=== PATIENT | male | born 1970 | race Caucasian/White ===

== ENCOUNTER 2021-06-03 04:35 | Emergency (ER) | payer OTHER ==
[~2021-06-03] VITALS: Ht 180.3 cm; Wt 74.8 kg
--- NOTE | 2021-06-03 04:48 | NUR ---
BIBA TO ER BED 12
[2021-06-03 05:00] VITALS: BP 104/76
--- NOTE | 2021-06-03 05:05 | NUR ---
BIBA TO BED 12 FOR C/O ABDOMINAL PAIN. "I DID TOO MUCH DRINKING". IS AWAKE AND , ALERT AND COOPERATIVE. POINTS TO MID ABDOMEN WHEN ASKED WHERE PAIN IS.
[2021-06-03] MEDS ORDERED: NACL 0.9% 1,000 ML IV SCH (05:30)
--- NOTE | 2021-06-03 05:30 | NUR ---
DR. KING AT BEDSIDE FOR EXAM
[2021-06-03] MEDS ORDERED: PANTOPRAZOLE 40 MG INJ VIAL IVP ONE (05:50)
[2021-06-03 06:46] LABS: BASOPHILS % (AUTO) 0.1 % (0.0-2.0); HEMATOCRIT 31.3 % (36-52); HEMOGLOBIN 9.7 g/dL (12.0-18.0); LYMPHOCYTES # (AUTO) 1.1 K/uL (2.0-11.5); LYMPHOCYTES % (AUTO) 12.2 % (20.5-51.1); MEAN CORPUSCULAR HEMOGLOBIN 23 pg (27-31); MEAN CORPUSCULAR HGB CONC 31 g/dL (33-37); MEAN CORPUSCULAR VOLUME 72.7 fL (80-94); MONOCYTES # (AUTO) 0.9 K/uL (0.8-1.0); MONOCYTES % (AUTO) 10.1 % (1.7-9.3); NEUTROPHILS # (AUTO) 6.7 K/uL (1.8-7.7); NEUTROPHILS % (AUTO) 77.6 % (42.2-75.2); PLATELET COUNT (AUTO) 249 K/uL (140-450); RED BLOOD CELL COUNT(AUTO) 4.31 MIL/uL (4.20-6.10); RED CELL DISTRIBUTION WIDTH 19.8 % (11.6-13.7); WHITE BLOOD COUNT (AUTO) 8.6 K/uL (4.8-10.8)
[2021-06-03 07:08] LABS: ALBUMIN 3.8 g/dL (3.4-5.0); ANION GAP 10.2 (8-16); CARBON DIOXIDE 34.8 mmol/L (21-32); CREATININE 1.1 mg/dL (0.6-1.3); TOTAL BILIRUBIN 0.7 mg/dL (0.0-1.0)
--- NOTE | 2021-06-03 09:00 | NUR ---
Alisha encarnacion in EDM - 06/03/21 at 0901 by JERROD Patient assessed, treated, and discharged with v/s stable. Written and verbal after care instructions about suture removal given and explained. Patient verbalized understanding. Ambulatory with steady gait. All questions addressed prior to discharge. Advised to follow up with PMD.
--- NOTE | 2021-06-03 09:00 | NUR ---
PT ALERT AND AWAKE, BREATHING EVEN AND UNLABORED
[2021-06-03 09:26] LABS: APPEARANCE,URINE CLEAR (CLEAR); BILIRUBIN,URINE NEGATIVE (NEGATIVE); BLOOD, URINE NEGATIVE (NEGATIVE); COLOR,URINE ORANGE (YELLOW); LEUKOCYTE ESTERASE ,URINE NEGATIVE (NEGATIVE); NITRITE, URINE NEGATIVE (NEGATIVE); PH,URINE 8.5 (5.0-9.0); UGLUCOSE NEGATIVE (NEGATIVE)
[2021-06-03 09:28] LABS: RBC,URINE 0-5 /HPF (0-5); WBC,URINE 0-5 /HPF (0-5)
[2021-06-03 09:31] LABS: BARBITURATE, URINE NEGATIVE ng/ml (NEG <=200); BENZODIAZEPINE, URINE NEGATIVE ng/mL (NEG <=200); CANNABINOID, URINE POSITIVE ng/mL (NEG <=50); COCAINE, URINE NEGATIVE ng/mL (NEG <=300); OPIATE, URINE NEGATIVE ng/mL (NEG <=2000); PHENCYCLIDINE SCREEN,URINE NEGATIVE ng/mL (NEG <=25)
[2021-06-03] MEDS ORDERED: IBUP-2213 PO (10:16)
--- NOTE | 2021-06-03 10:45 | NUR ---
Patient discharged with v/s stable. Written and verbal after care instructions about abdominal pain given and explained. Patient alert, oriented and verbalized understanding of instructions. Ambulatory with steady gait. All questions addressed prior to discharge. ID band removed. Patient advised to follow up with PMD. Rx of ibuprofen given. Patient educated on indication of medication including possible reaction and side effects. Opportunity to ask questions provided and answered.
[2021-06-03 10:51] VITALS: BP 120/79
== END 2021-06-03 10:49 | disposition home or self-care (01) ==
LOC: MED 04:35
DX: R10.30 Lower abdominal pain, unspecified (principal); R11.2 Nausea with vomiting, unspecified; Z86.69 Personal history of other diseases of the nervous system and sense organs
CPT/HCPCS: 36415; 74176; 74177; 80053; 80305; 81001; 83690; 85025; 96361; 96374; 99285; C9113; G0482; J7030; Q9967

== ENCOUNTER 2021-11-13 21:52 | Emergency (ER) | payer OTHER ==
[~2021-11-13] VITALS: Ht 177.8 cm; Wt 70.3 kg
[~2021-11-13 21:52] MED LIST: IBUP-2213 PO
[2021-11-13] MEDS ORDERED: NACL 0.9% 1,000 ML IV ONE (23:00)
[2021-11-13] MEDS ORDERED: ONDANSETRON 4 MG/2 ML VIAL IVP ONE (23:00)
[2021-11-13] MEDS ORDERED: MORPHINE SULFATE 4 MG/ML SYR IVP ONE (23:00)
[2021-11-13 23:20] LABS: BASOPHILS % (AUTO) 0.2 % (0.0-2.0); HEMATOCRIT 39.4 % (36-52); HEMOGLOBIN 13.1 g/dL (12.0-18.0); LYMPHOCYTES # (AUTO) 0.4 K/uL (2.0-11.5); LYMPHOCYTES % (AUTO) 6.6 % (20.5-51.1); MEAN CORPUSCULAR HEMOGLOBIN 28 pg (27-31); MEAN CORPUSCULAR HGB CONC 33 g/dL (33-37); MEAN CORPUSCULAR VOLUME 83.2 fL (80-94); MONOCYTES # (AUTO) 0.5 K/uL (0.8-1.0); NEUTROPHILS # (AUTO) 5.1 K/uL (1.8-7.7); NEUTROPHILS % (AUTO) 85.2 % (42.2-75.2); PLATELET COUNT (AUTO) 229 K/uL (140-450); RED BLOOD CELL COUNT(AUTO) 4.73 MIL/uL (4.20-6.10); RED CELL DISTRIBUTION WIDTH 18.8 % (11.6-13.7)
[2021-11-13 23:23] VITALS: BP 134/78
--- NOTE | 2021-11-13 23:30 | NUR ---
TO CHAIR A FOLLOWING TRIAGE
[2021-11-13 23:41] LABS: ALBUMIN 5.1 g/dL (3.4-5.0); ANION GAP 22.3 (8-16); CARBON DIOXIDE 31.4 mmol/L (21-32); POTASSIUM 3.7 mmol/L (3.5-5.1); TOTAL BILIRUBIN 1.5 mg/dL (0.0-1.0)
[2021-11-14] MEDS ORDERED: ONDANSETRON 4 MG/2 ML VIAL ONE (00:23)
[2021-11-14] MEDS ORDERED: MORPHINE SULFATE 4 MG/ML SYR ONE (00:23)
--- NOTE | 2021-11-14 00:33 | NUR ---
PT TAKEN TO BED 11.
--- NOTE | 2021-11-14 00:35 | NUR ---
51 YO M BIB SELF WITH C/C OF VOMITING X1DAY. PT STATES THERE IS BLOOD IN EMESIS. PT REPORTS HE HAD BEEN DRINKING ALCOHOL HEAVILY FOR 3DAYS STRAIGHT. ABD IS SOFT AND FLAT. BOWEL SOUNDS ACTIVE 4 QUADS. DENIES DIARRHEA. REPORTS 8/10 SHARP ABD PAIN. DENIES HX, RX AND ALLERGIES
[2021-11-14] MEDS ORDERED: ONDA-188 PO (02:41)
[2021-11-14 02:43] VITALS: BP 135/65
== END 2021-11-14 02:43 | disposition home or self-care (01) ==
LOC: MED 21:52
DX: N17.9 Acute kidney failure, unspecified (principal); E86.0 Dehydration; E87.2 Acidosis; Z79.1 Long term (current) use of non-steroidal anti-inflammatories (NSAID)
CPT/HCPCS: 36415; 74176; 80053; 83690; 85025; 96361; 96374; 96375; 99284; J2270; J2405; J7030

== ENCOUNTER 2022-07-25 16:12 | Inpatient (IN) | payer OTHER ==
[~2022-07-25] VITALS: Ht 177.8 cm; Wt 73.5 kg
[~2022-07-25 16:12] MED LIST changes: -IBUP-2213 PO; +LACT10SO11 PO; +ONDA-188 PO; +ONDA2SOL45 PO; +PRO40I PO
[2022-07-25 17:11] VITALS: BP 170/84
--- NOTE | 2022-07-25 17:20 | NUR ---
PT AMB TO BED 10
[2022-07-25] MEDS ORDERED: ONDANSETRON 4 MG/2 ML VIAL IVP ONE (17:25)
[2022-07-25] MEDS ORDERED: PANTOPRAZOLE 40 MG INJ VIAL IVP ONE (17:25)
[2022-07-25] MEDS ORDERED: PANTOPRAZOLE 80 MG in NACL 0.9% 100 ML IVP SCH (17:25)
[2022-07-25] MEDS ORDERED: NACL 0.9% 1,000 ML IV ONE (17:25)
[2022-07-25] MEDS ORDERED: OCTREOTIDE ACETATE 1.25 MG in NACL 0.9% 250 ML IV SCH ×2 (17:40→19:20)
[2022-07-25] MEDS ORDERED: OCTREOTIDE ACETATE 100 MCG/ML VIAL IV SCH (17:40)
--- NOTE | 2022-07-25 17:55 | NUR ---
BOUCHRA SWAB COLLECTED AND HANDED TO STAFFING CONSULTANT
[2022-07-25 18:13] LABS: BASOPHILS % (AUTO) 0.2 % (0.0-2.0); HEMATOCRIT 33.7 % (36-52); HEMOGLOBIN 11.2 g/dL (12.0-18.0); LYMPHOCYTES # (AUTO) 0.6 K/uL (2.0-11.5); LYMPHOCYTES % (AUTO) 7.3 % (20.5-51.1); MEAN CORPUSCULAR HEMOGLOBIN 27 pg (27-31); MEAN CORPUSCULAR HGB CONC 33 g/dL (33-37); MEAN CORPUSCULAR VOLUME 81.2 fL (80-94); MONOCYTES # (AUTO) 0.5 K/uL (0.8-1.0); MONOCYTES % (AUTO) 6.9 % (1.7-9.3); NEUTROPHILS # (AUTO) 6.5 K/uL (1.8-7.7); NEUTROPHILS % (AUTO) 85.6 % (42.2-75.2); PLATELET COUNT (AUTO) 265 K/uL (140-450); RED BLOOD CELL COUNT(AUTO) 4.15 MIL/uL (4.20-6.10); RED CELL DISTRIBUTION WIDTH 17.6 % (11.6-13.7); WHITE BLOOD COUNT (AUTO) 7.6 K/uL (4.8-10.8)
[2022-07-25] MEDS ORDERED: OCTREOTIDE ACETATE 1.25 MG in NACL 0.9% 250 ML IV STA (18:13)
--- NOTE | 2022-07-25 18:21 | NUR ---
52/M PRESENTS TO ED WITH C/O ABDOMINAL PAIN AND COFFEE GROUND EMESIS X3 DAYS. PATIENT ADMITS TO REGULAR CONSUMPTION OF ALCOHOL, STATING HE DRANK "AROUND 6 BEERS YESTERDAY." PATIENT DENIES CP, SOB, FEVERS, CHILLS OR RECENT SICK CONTACTS.
[2022-07-25 18:29] LABS: PROTHROMBIN TIME 10.8 secs (10.8-13.4)
[2022-07-25 18:37] LABS: ALBUMIN 4.3 g/dL (3.4-5.0); ANION GAP 17.2 (8-16); ASPARTATE AMINOTRANSFERASE 28 U/L (15-37); CARBON DIOXIDE 29.6 mmol/L (21-32); CHLORIDE 96 mmol/L (98-107); CREATININE 1.3 mg/dL (0.6-1.3); GFR ARICAN-AMERICAN 74 mL/min (>90); GLUCOSE 123 mg/dL (74-106); POTASSIUM 3.8 mmol/L (3.5-5.1); SODIUM SERUM 139 mmol/L (136-145); TOTAL BILIRUBIN 1.6 mg/dL (0.0-1.0); UREA NITROGEN, BLOOD 11 mg/dL (7-18)
[2022-07-25] MEDS ORDERED: KCL 20 MEQ/WATER INJ PREMIX 200 ML IV PRN (19:20)
[2022-07-25] MEDS ORDERED: POTASSIUM CHLORIDE 10 MEQ TABER PO PRN (19:20)
[2022-07-25] MEDS ORDERED: ACETAMINOPHEN 325 MG TAB PO PRN (19:20)
[2022-07-25] MEDS ORDERED: ONDANSETRON 4 MG/2 ML VIAL IVP PRN (19:20)
[2022-07-25] MEDS ORDERED: MORPHINE SULFATE 4 MG/ML SYR IVP PRN (19:20)
[2022-07-25] MEDS ORDERED: MAGNESIUM OXIDE 400 MG TAB PO PRN (19:20)
[2022-07-25] MEDS ORDERED: HYDROmorphone 1 MG/ML AMP IVP PRN (19:20)
[2022-07-25] MEDS ORDERED: MAG SULF 2000 MG/WATER PREMIX 50 ML IV PRN (19:20)
--- NOTE | 2022-07-25 19:24 | NUR ---
Pt report given to DELFINA MACDONALD, BOOGIE MACDONALD. Transfer of care at this time.
--- NOTE | 2022-07-25 19:59 | NUR ---
ileana from [facility] called regarding protonix drip prescribed by arina conteh. states attending md also placed protonix ivp orders. arina perez stated he will cancel the protonix drip.
[2022-07-25] MEDS ORDERED: cefTRIAXone 1,000 MG VIAL ONE (20:07)
--- NOTE | 2022-07-25 20:12 | NUR ---
pt is awake and alert. pt denies pain and discomfort at this time. all needs met. bed locked in lowest position, side rails x2 for safety.
[2022-07-25] MEDS ORDERED: PANTOPRAZOLE 40 MG INJ VIAL IVP SCH (21:00)
--- NOTE | 2022-07-25 21:46 | NUR ---
report given to otf gregory. [id number]
--- NOTE | 2022-07-25 22:34 | NUR ---
Patient will be admitted to care of [facility]. Admited to TELE]. Will go to [id number]. Belongings list completed. Report to RENAE DAMIAN.
--- NOTE | 2022-07-25 23:00 | NUR ---
RECEIVED REPORT FROM ER NURSE DELFINA MACDONALD ON NEW ADMIT FOR CONTINUITY OF CARE. ARRIVED ON MST UNIT VIA GURNEY. AMBULATED TO BED WITH STEADY GAIT. A&OX4 DENIES PAIN AT THIS TIME. ON RM AIR/O2 WITH NO ACUTE DISTRESS. RR EVEN AND UNLABORED WITH SYMMETRICAL CHEST RISE. GI INTACT. IS NPO EXCEPT MEDS. PT'S SKIN IS INTACT. IV RFA 20G INFUSING LACTATED RINGERS @80CC/HR. ALSO LAC 20G INFUSING SANDOSTATIN @10CC/HR. AT IS AMBULATORY AND CONTINENT. ALL SAFETY MEASURES IN PLACE. BED IN LOW AND LOCKED POSITION . CALL LIGHT WITHIN REACH. PT CAMBODIAN AND BULGARIAN SOPEAKING . ABLE TO MAKE NEEDS KNOWN. WILL CONTINUE TO MONITOR.
[2022-07-25] MEDS: LACTATED RINGERS 1,000 ML IV SCH (23:25)
[2022-07-26] MEDS: HYDROcodone/APAP 5/325 MG 1 TAB TAB PO PRN ×2 (01:14→20:00)
--- NOTE | 2022-07-26 01:15 | NUR ---
VITAL SIGNS STABLE . TEMP- 99.0 C/O 4/10 RLQ PAIN . NOT SLEEPING. NORCO 5/325MG GIVEN WILL CONTINUE FREQ ROUNDS.
--- NOTE | 2022-07-26 02:00 | NUR ---
NORCO EFFECTIVE. PT ASLEEP RR EVEN AND UNLABORED WITH SYMMETRICAL CHEST RISE. NAD. WILL CONTINUE TO OBSERVE.
[2022-07-26 02:06] VITALS: BP 129/76
[2022-07-26 05:32] LABS: BASOPHILS % (AUTO) 0.3 % (0.0-2.0); HEMATOCRIT 30.7 % (36-52); LYMPHOCYTES # (AUTO) 1.2 K/uL (2.0-11.5); LYMPHOCYTES % (AUTO) 18.8 % (20.5-51.1); MEAN CORPUSCULAR HEMOGLOBIN 27 pg (27-31); MEAN CORPUSCULAR HGB CONC 33 g/dL (33-37); MEAN CORPUSCULAR VOLUME 82.3 fL (80-94); MONOCYTES # (AUTO) 0.7 K/uL (0.8-1.0); MONOCYTES % (AUTO) 10.2 % (1.7-9.3); NEUTROPHILS # (AUTO) 4.6 K/uL (1.8-7.7); NEUTROPHILS % (AUTO) 70.7 % (42.2-75.2); PLATELET COUNT (AUTO) 186 K/uL (140-450); RED BLOOD CELL COUNT(AUTO) 3.73 MIL/uL (4.20-6.10); RED CELL DISTRIBUTION WIDTH 17.7 % (11.6-13.7); WHITE BLOOD COUNT (AUTO) 6.5 K/uL (4.8-10.8)
[2022-07-26 06:16] LABS: ALBUMIN 3.5 g/dL (3.4-5.0); ANION GAP 13.1 (8-16); CARBON DIOXIDE 29.2 mmol/L (21-32); CREATININE 0.9 mg/dL (0.6-1.3); MAGNESIUM 1.8 mg/dL (1.8-2.4); PHOSPHORUS 3.5 mg/dL (2.5-4.9); POTASSIUM 3.3 mmol/L (3.5-5.1); TOTAL BILIRUBIN 1.3 mg/dL (0.0-1.0)
--- NOTE | 2022-07-26 07:45 | NUR ---
ENDORSED REPORT TO AM NURSE CHANELLE MACDONALD FOR CONTINUITY OF CARE. PT IS STABLE. ALL NEEDS MET THROUGHOUT THE SHIFT.
--- NOTE | 2022-07-26 07:46 | NUR ---
RECEIVED PT FROM NIGHT RN, PT IS ALERT, AWAKE AND ORIENTED, KOREAN SPEAKING, LYING ON THE BED WITH SAFETY PREACUTION ENFORCED, PT IS ON ROOM AIR, HAS IV LINES NOTED ON THE RIGHT FOREARM G. 20 WITH LACTATED RINGER INFUSING AT 80ML/HR AND ON THE LEFT AC G. 20 WITH SANDOSTATIN INFUSING AT 10ML/HR, INTACT, NO SIGN OF DISTRESS NOTED, PT DENIES PAIN AND WILL CONTINUE TO MONITOR .
[2022-07-26 08:00] VITALS: BP 123/76
[2022-07-26] MEDS: LACTATED RINGERS 1,000 ML IV SCH ×2 (09:13→21:12)
[2022-07-26] MEDS: PANTOPRAZOLE 40 MG INJ VIAL IVP SCH ×2 (09:17→20:01)
--- NOTE | 2022-07-26 09:17 | NUR ---
PT WAS GIVEN THE SCHEDULED IVP MEDICATION NOW.
--- NOTE | 2022-07-26 10:45 | NUR ---
PATIENT HAS BEEN SCREENED AND CATEGORIZED HIGH NUTRITION RISK. PATIENT WILL BE SEEN WITHIN 1-2 DAYS OF ADMISSION. 07/26/22-07/28/22 REVIEWED BY LEIGH HAMEED RD REFERRAL RECEIVED FOR VOMITING >3 DAYS.
--- NOTE | 2022-07-26 11:01 | NUR ---
PT WAS GIVEN POTASSIUM SUPPLEMENT 40MEQ FOR POTASSIUM LEVEL OF 3.3
[2022-07-26 12:00] VITALS: BP 128/89
--- NOTE | 2022-07-26 13:45 | NUR ---
DC PLANNING SW MET WITH PT AT BEDSIDE TO COMPLETE ASSESSMENT. PATIENT IS PRIMARILY [place]ER SPEAKING,THEREFORE, AN RAINBOW TROUT FARM MANAGER WAS USED. RAINBOW TROUT FARM MANAGER INFORMATION LISTED ABOVE. PT REPORTS RESIDING AT HOME WITH HIS FAMILY, IN A GROUND FLOOR APT, AT THE ADDRESS LISTED ON FILE. PATIENT IDENTIFIED TOPHER NUNEZ (SPOUSE) [phone] AND SELVIN NUNEZ (DAUGHTER) [phone] EMERGENCY CONTACT AND MDM. PATIENT REPORTS BEING INCONSISTENT WITH MEETING WITH PCP NEEDED, LAST VISIT; 2 WEEKS AGO. SW SPOKE WITH PATIENT ABOUT THE IMPORTANCE OF F/U CARE. PATIENT RECEPTIVE AND PROVIDED SW WITH PERMISSION TO SCHEDULE FOLLOW UP. PATIENT DENIES TAKING MEDICATION AT THIS TIME HOWEVER, DENIES BARRIERS IN ACCESS TO MEDICATION . IF NEEDED. PATIENT REPORTS PICKING UP MEDICATION FROM [facility], WHEN NEEDED. PATIENT REPORTS BEING AMBULATORY AND DENIES USE OF DME. PATIENT COMPLETES ALL ADL'S INDEPENDENTLY. PT DENIES MENTAL HEALTH HX. PATIENT REPORTS CHRONIC ALCOHOL USE. PATIENT REPORTS DRINKING 5-6 24OZ CANS /DAILY. PATIENT REPORTS USE SPANNING OVER 40 YRS. PATIENT REPORTS ONLY BEING SOBER WHEN FEELING ILL. PATIENT ACCEPTED SUBSTANCE USE RESOURCES OFFERED BY MARTHA. PATIENT REPORTS DC PLAN IS TO RETURN HOME WHEN MEDICALLY CLEARED. SW INQUIRED ON ADDITIONAL RESOURCES NEEDED, PATIENT DECLINED. Addendum: 07/26/22 at 1539 by Sola Daugherty PROVIDED PT WITH SUBSTANCE USE RESOURCES, PATIENT ACCEPTED
--- NOTE | 2022-07-26 14:37 | NUR ---
INFORMED DR. GRANT OF THE CONSULT FOR PT, MADE A TELEPHONE ORDER TO OBTAIN CONSENT FOR EGD TOMORROW AND TO START PT ON CLEAR LIQUID DIET AND NPO AFTER MIDNIGHT.
[2022-07-26 16:00] VITALS: BP 120/72
--- NOTE | 2022-07-26 19:02 | NUR ---
07/26/2022 RD INITIAL ASSESSMENT COMPLETED. PLEASE REFER TO NUTRITION ASSESSMENT UNDER CARE ACTIVITY FOR ESTIMATED NUTRITIONAL NEEDS. 1.CONTINUE WITH CLEAR LIQUID DIET. WHEN/IF MEDICALLY APPROPRIATE, ADVANCE TO FULL LIQUID DIET PT TOLERATES, 2.MONITOR PO INTAKE & GI SYMPTOMS 3.RD TO FOLLOW-UP IN 3-5 DAYS PATIENT IS MODERATE RISK. LEIGH HAMEED RD
--- NOTE | 2022-07-26 19:18 | NUR ---
ENDORSED PT TO NIGHT RN FOR CONTINUITY OF CARE, PT IS STABLE AT THIS TIME.
[2022-07-26 20:00] VITALS: BP 129/75
[2022-07-26 23:46] VITALS: BP 116/77
[2022-07-27 03:42] VITALS: BP 136/92
[2022-07-27 06:54] LABS: BASOPHILS % (AUTO) 0.6 % (0.0-2.0); EOSINOPHILS % (AUTO) 0.6 % (0.0-4.0); HEMATOCRIT 30.8 % (36-52); HEMOGLOBIN 10.1 g/dL (12.0-18.0); LYMPHOCYTES # (AUTO) 1.1 K/uL (2.0-11.5); LYMPHOCYTES % (AUTO) 30.2 % (20.5-51.1); MEAN CORPUSCULAR HEMOGLOBIN 27 pg (27-31); MEAN CORPUSCULAR HGB CONC 33 g/dL (33-37); MEAN CORPUSCULAR VOLUME 81.7 fL (80-94); MONOCYTES # (AUTO) 0.3 K/uL (0.8-1.0); MONOCYTES % (AUTO) 9.3 % (1.7-9.3); NEUTROPHILS # (AUTO) 2.1 K/uL (1.8-7.7); NEUTROPHILS % (AUTO) 59.3 % (42.2-75.2); PLATELET COUNT (AUTO) 191 K/uL (140-450); RED BLOOD CELL COUNT(AUTO) 3.76 MIL/uL (4.20-6.10); RED CELL DISTRIBUTION WIDTH 17.2 % (11.6-13.7); WHITE BLOOD COUNT (AUTO) 3.6 K/uL (4.8-10.8)
[2022-07-27 07:18] LABS: ALBUMIN 3.3 g/dL (3.4-5.0); ANION GAP 12.5 (8-16); CREATININE 0.7 mg/dL (0.6-1.3); MAGNESIUM 1.4 mg/dL (1.8-2.4); PHOSPHORUS 2.5 mg/dL (2.5-4.9); POTASSIUM 3.5 mmol/L (3.5-5.1); TOTAL BILIRUBIN 0.8 mg/dL (0.0-1.0)
--- NOTE | 2022-07-27 07:30 | NUR ---
RECEIVED PT FROM NIGHTSHIFT NURSE. PT A/O X3. VIETNAMESE SPEAKING. NO SOB OR RESPIRATORY DISTRESS. ON RA. DENIES PAIN AT THIS TIME. NPO. IV RFA #20 AND LFA#20 DRESSING C/D/I. LR @ 80ML/HR. NEEDS ALL MET AT THIS TIME. ALL SAFETY MEASURES IN PLACE.
[2022-07-27 08:00] VITALS: BP 125/70
[2022-07-27] MEDS: LACTATED RINGERS 1,000 ML IV SCH ×2 (08:38→20:16)
--- NOTE | 2022-07-27 08:38 | NUR ---
PT OFF UNIT TO EGD
[2022-07-27] MEDS: PANTOPRAZOLE 40 MG INJ VIAL IVP SCH ×2 (08:39→20:10)
[2022-07-27] MEDS ORDERED: fentaNYL citrate 0.05 MG/ML VIAL ONE (08:50)
[2022-07-27] MEDS ORDERED: diphenhydrAMINE 50 MG/ML VIAL ONE (08:50)
[2022-07-27] MEDS ORDERED: MIDAZOLAM 2 MG/2 ML VIAL ONE (08:50)
[2022-07-27] MEDS ORDERED: fentaNYL citrate 0.05 MG/ML VIAL IVP ONE (10:00)
[2022-07-27] MEDS ORDERED: MIDAZOLAM 2 MG/2 ML VIAL IVP ONE (10:00)
--- NOTE | 2022-07-27 10:00 | NUR ---
PT BACK FROM EGD. PT AWAKE AND ALERT. IN NO ACUTE DISTRESS. RR EVEN & UNLABORED. ALL SAFETY MEASURES IN PLACE.
--- NOTE | 2022-07-27 11:00 | NUR ---
SPOKE WITH DR. ASH AND STATES PLANS FOR COLONOSCOPY TOMORROW AT 1400. ORDER FOR PT TO BE NPO AFTER MIDNIGHT.
[2022-07-27 12:00] VITALS: BP 136/84
--- NOTE | 2022-07-27 13:45 | NUR ---
PT PULLED OUT L FA #20. NEW IV RESTART ON R FA #22 X 1 ATTEMPT WITH POSITIVE BLOOD RETURN, FLUSHED WITH 5 ML NS, TEGADERM APPLIED. PT TOLERATED WELL.
[2022-07-27] MEDS: LANSOPRAZOLE 30 MG CAPDR PO SCH (15:54)
[2022-07-27 16:00] VITALS: BP 117/77
[2022-07-27] MEDS: SUPREP BOWEL PREP KIT 354 ML SOLN.RECON PO SCH (18:24)
--- NOTE | 2022-07-27 19:23 | NUR ---
REPORT GIVEN TO NIGHTSHIFT NURSECEE FOR CONTINUITY OF CARE.
--- NOTE | 2022-07-27 19:25 | NUR ---
RECEIVED PATIENT IN BED, AWAKE, ALERT AND ORIENTED. DENIES PAIN AT THIS TIME. NO ACUTE RESPIRATORY DISTRESS NOTED. SKIN WARM AND DRY TO TOUCH. BED IN THE LOWEST AND LOCKED POSITION FOR SAFETY, CALL LIGHT IN REACH.
[2022-07-27 20:00] VITALS: BP 129/83
[2022-07-27] MEDS ORDERED: SUPREP BOWEL PREP KIT 354 ML SOLN.RECON PO SCH (21:00)
[2022-07-27] MEDS: LORazepam 1 MG TAB PO PRN (21:20)
--- NOTE | 2022-07-27 21:30 | NUR ---
ENEMA GIVEN ORDERED, PATIENT TOLERATED WELL.
[2022-07-27] MEDS ORDERED: SODIUM PHOSPHATE 118 ML ENEM RC SCH (22:00)
--- NOTE | 2022-07-27 23:11 | NUR ---
PATIENT HAD A LARGE BROWN/REDDISH WATERY STOOL.
[2022-07-28] VITALS: BP 119/76
[2022-07-28] MEDS: SUPREP BOWEL PREP KIT 354 ML SOLN.RECON PO SCH (01:24)
--- NOTE | 2022-07-28 01:45 | NUR ---
PATIENT HAD A LARGE WATERY STOOL. ABLE TO FINISH PREP FOR COLONOSCOPY.
[2022-07-28 04:00] VITALS: BP 116/76
--- NOTE | 2022-07-28 04:00 | NUR ---
PATIENT IS ASLEEP. NO S/SX OF PAIN NOR DISCOMFORT. CALL LIGHT WITHIN REACH.
--- NOTE | 2022-07-28 06:21 | NUR ---
PATIENT IS ASLEEP. ALL NEEDS ATTENDED TO. NO DISTRESS NOTED. CURRENTLY NPO. SAFETY PRECAUTIONS MIANTAINED DURING THE SHIFT. CALL LIGHT REMAINED WITHIN REACH.
[2022-07-28] MEDS: LANSOPRAZOLE 30 MG CAPDR PO SCH ×2 (06:30→16:06)
[2022-07-28] MEDS ORDERED: diphenhydrAMINE 50 MG/ML VIAL ONE (06:59)
[2022-07-28] MEDS ORDERED: MIDAZOLAM 5 MG/5 ML VIAL ONE (06:59)
[2022-07-28] MEDS ORDERED: fentaNYL citrate 0.05 MG/ML VIAL ONE (06:59)
[2022-07-28 07:05] LABS: ALBUMIN 3.6 g/dL (3.4-5.0); ANION GAP 17.2 (8-16); CARBON DIOXIDE 23.3 mmol/L (21-32); CREATININE 0.8 mg/dL (0.6-1.3); MAGNESIUM 1.5 mg/dL (1.8-2.4); PHOSPHORUS 2.8 mg/dL (2.5-4.9); POTASSIUM 3.5 mmol/L (3.5-5.1); TOTAL BILIRUBIN 0.8 mg/dL (0.0-1.0)
[2022-07-28 07:17] LABS: BASOPHILS % (AUTO) 0.4 % (0.0-2.0); EOSINOPHILS % (AUTO) 0.3 % (0.0-4.0); HEMATOCRIT 32.7 % (36-52); HEMOGLOBIN 10.7 g/dL (12.0-18.0); LYMPHOCYTES # (AUTO) 0.9 K/uL (2.0-11.5); LYMPHOCYTES % (AUTO) 22.3 % (20.5-51.1); MEAN CORPUSCULAR HEMOGLOBIN 27 pg (27-31); MEAN CORPUSCULAR HGB CONC 33 g/dL (33-37); MONOCYTES # (AUTO) 0.5 K/uL (0.8-1.0); MONOCYTES % (AUTO) 10.7 % (1.7-9.3); NEUTROPHILS # (AUTO) 2.8 K/uL (1.8-7.7); NEUTROPHILS % (AUTO) 66.3 % (42.2-75.2); PLATELET COUNT (AUTO) 205 K/uL (140-450); RED BLOOD CELL COUNT(AUTO) 3.99 MIL/uL (4.20-6.10); RED CELL DISTRIBUTION WIDTH 17.3 % (11.6-13.7); WHITE BLOOD COUNT (AUTO) 4.2 K/uL (4.8-10.8)
[2022-07-28] MEDS: MIDAZOLAM 5 MG/5 ML VIAL IV ONE ×2 (07:19→07:58)
[2022-07-28] MEDS: fentaNYL citrate 0.05 MG/ML VIAL IVP ONE ×2 (07:20→07:58)
--- NOTE | 2022-07-28 07:30 | NUR ---
RECEIVED REPORT FROM NIGHTSHIFT NURSECEE. PT NOT ON UNIT. OFF FOR COLONOSCOPY.
--- NOTE | 2022-07-28 07:45 | NUR ---
PT BACK FROM COLONOSCOPY. PT A/O X3. CZECH SPEAKING, LITTLE [place]. HOB ELEVATED. NO SOB OR RESPIRATORY DISTRESS. ON RA. RR EVEN & UNLABORED. DENIES PAIN AT THIS TIME. URINAL AT BEDSIDE. LR @ 80 ML/HR. NEEDS ALL MET AT THIS TIME. ALL SAFETY MEASURES IN PLACE.
[2022-07-28 08:00] VITALS: BP 98/72
[2022-07-28] MEDS: PANTOPRAZOLE 40 MG INJ VIAL IVP SCH ×2 (09:01→20:55)
[2022-07-28] MEDS: LACTATED RINGERS 1,000 ML IV SCH ×2 (09:12→22:48)
--- NOTE | 2022-07-28 11:00 | NUR ---
PT SPEAKING IN [place]. PREOP NURSE EXPLAINED IN [place] THAT PT HAD A COLONOSCOPY AND THAT MD STATES NO INTERVENTIONS WILL BE DONE FOR HIS HEMORRHOIDS DUE TO HIS HIATAL HERNIA. PT UPSET. EXPLAINED WILL CONTACT MD REGARDING PT'S CONCERN REGARDING HIS HEMORRHOIDS. ALL NEEDS MET. ALL SAFETY MEASURES IN PLACE.
[2022-07-28 12:00] VITALS: BP 121/89
--- NOTE | 2022-07-28 13:00 | NUR ---
MD WILL SPEAK WITH PT. EXPLAINED TO PT AND PT VERBALIZED UNDERSTANDING.
[2022-07-28 16:00] VITALS: BP 123/74
--- NOTE | 2022-07-28 19:21 | NUR ---
REPORT GIVEN TO NIGHTSKYFT NURSE JAMES FOR CONTINUITY OF CARE.
--- NOTE | 2022-07-28 19:30 | NUR ---
RECEIVED BEDSIDE REPORT FROM DAY SHIFT RN FOR CONTINUITY OF CARE. PT IS AWAKE. AAOX4 DOMINICAN SPEAKER. PT IS ON RA. PT USES URINAL. PT HAS RIGHT FOREARM 20 GAUGE, 20 GAUGE ON LEFT FOREARM 22 GAUGE RUNNING LR AT 80 CC/HR. PLAN OF CARE DISCUSSED. WILL CONTINUE TO MONITOR THE PT.
[2022-07-28 20:00] VITALS: BP 121/77
--- NOTE | 2022-07-28 20:58 | NUR ---
SCHEDULE MEDICATIONS GIVEN. NO ADVERSE REACTION NOTED. WILL CONTINUE TO MONITOR THE PT.
--- NOTE | 2022-07-28 23:30 | NUR ---
PT FAMILY CALLED AND WANTED TO SPEAK WITH THE PT. ASSISTED PT WITH PHONE IN THE ROOM. PT WAS ABLE TO SPEAK WITH THE FAMILY.
[2022-07-29] VITALS: BP 129/85
--- NOTE | 2022-07-29 01:35 | NUR ---
PT WAS SLEEPING COMFORTABLY IN BED. PT NOT IN ANY ACUTE DISTRESS. VISIBLE RISE AND CHEST FALL. IVF RUNNING PER MD ORDER. WILL CONTINUE TO MONITOR THE PT.
[2022-07-29] MEDS: LORazepam 1 MG TAB PO PRN (03:44)
--- NOTE | 2022-07-29 03:55 | NUR ---
PT FELT ANXIOUS. ATIVAN GIVEN PER MD ORDER. NO OTHER COMPLAINS. WILL CONTINUE TO MONITOR THE PT.
[2022-07-29 04:24] VITALS: BP 116/83
[2022-07-29 06:13] LABS: BASOPHILS % (AUTO) 0.5 % (0.0-2.0); EOSINOPHILS % (AUTO) 0.3 % (0.0-4.0); HEMATOCRIT 33.5 % (36-52); HEMOGLOBIN 10.8 g/dL (12.0-18.0); LYMPHOCYTES # (AUTO) 0.9 K/uL (2.0-11.5); LYMPHOCYTES % (AUTO) 22.3 % (20.5-51.1); MEAN CORPUSCULAR HEMOGLOBIN 27 pg (27-31); MEAN CORPUSCULAR HGB CONC 32 g/dL (33-37); MEAN CORPUSCULAR VOLUME 82.3 fL (80-94); MONOCYTES # (AUTO) 0.4 K/uL (0.8-1.0); MONOCYTES % (AUTO) 11.6 % (1.7-9.3); NEUTROPHILS # (AUTO) 2.5 K/uL (1.8-7.7); NEUTROPHILS % (AUTO) 65.3 % (42.2-75.2); PLATELET COUNT (AUTO) 206 K/uL (140-450); RED BLOOD CELL COUNT(AUTO) 4.07 MIL/uL (4.20-6.10); RED CELL DISTRIBUTION WIDTH 17.6 % (11.6-13.7); WHITE BLOOD COUNT (AUTO) 3.8 K/uL (4.8-10.8)
[2022-07-29 06:22] LABS: ALBUMIN 3.5 g/dL (3.4-5.0); ANION GAP 13.8 (8-16); CARBON DIOXIDE 23.8 mmol/L (21-32); CREATININE 0.8 mg/dL (0.6-1.3); MAGNESIUM 1.6 mg/dL (1.8-2.4); PHOSPHORUS 3.9 mg/dL (2.5-4.9); POTASSIUM 3.6 mmol/L (3.5-5.1); TOTAL BILIRUBIN 0.6 mg/dL (0.0-1.0)
[2022-07-29] MEDS: LANSOPRAZOLE 30 MG CAPDR PO SCH (06:34)
[2022-07-29] MEDS ORDERED: PANT40EC PO (07:05)
--- NOTE | 2022-07-29 07:15 | NUR ---
ENDORSED PT TO DAY SHIFT RN FOR CONTINUITY OF CARE. PT IS STABLE.
--- NOTE | 2022-07-29 07:16 | NUR ---
RECEIVED REPORT FROM COTTON GIN YARD SUPERVISOR NURSE JAMES FOR CONTINUITY OF CARE. PT SLEEPING, ASILY AROUSABLE BY VERBAL STIMULI. RESPIRATIONS EVEN AND UNLABORED ON RA. ON BOILERS INSPECTOR. A&O4, ABLE TO COMMUNICATE NEEDS. IV SITE ON RFA 20G, SL AND LFA 22G, INFUSING LR AT 80ML/HR. CALL LIGHT WITHIN REACH. SAFETY PRECAUTIONS IN PLACE. WILL CONTINUE TO MONITOR.
[2022-07-29 08:00] VITALS: BP 123/86
--- NOTE | 2022-07-29 08:51 | NUR ---
PRN MED ADMINISTERED FOR MG 1.6. WILL CONTINUE TO MONITOR.
[2022-07-29] MEDS: PANTOPRAZOLE 40 MG INJ VIAL IVP SCH (09:30)
--- NOTE | 2022-07-29 09:45 | NUR ---
IV MED ADMINISTERED BY RENAE CALLAHAN. PT TOLERATED WELL. WILL CONTINUE TO MONITOR.
[2022-07-29 12:00] VITALS: BP 130/86
[2022-07-29] MEDS: LACTATED RINGERS 1,000 ML IV SCH (12:10)
[2022-07-29 12:21] VITALS: BP 123/86
--- NOTE | 2022-07-29 12:30 | NUR ---
PT SEEN AND CHECKED BY DR KRAMER.
--- NOTE | 2022-07-29 13:04 | NUR ---
DISCUSSED DC PAPERS WITH THE PT USING EVELIN MICA LAYER #[phone]. PT VERBALIZED UNDERSTANDING. REMOVED IV CATHETERS INTACT. SPOKE TO SON SANDY. PER SANDY, HE WILL BE THERE IN 30 MINS TO PICK-UP HIS FATHER.
--- NOTE | 2022-07-29 13:17 | NUR ---
PRESCRIPTION ON PT CHART GIVEN AND DISCUSSED WITH THE PT. SURGEON INFORMATION GIVEN TO PT PER DR KRAMER.
--- NOTE | 2022-07-29 13:25 | NUR ---
PT DC HOME. PT WHEELED OUT BY JANEE MCKENZIE TO FRONT LOBBY. REMOVED ID WRIST BAND. REMOVED SLITTER CREASER SLOTTER HELPER. ALL BELONGINGS TAKEN UPON DC. PT IS STABLE.
--- NOTE | 2022-08-01 16:30 | NUR ---
DISCHARGE PLANNING MARTHA ATTEMPTED TO CALL PATIENT AT TO PROVIDE HIM WITH FOLLOW UP APPOINTMENT INFORMATION. PATIENT DID NOT RESPOND THE CALL AND MARTHA LEFT HIM A VOICE MAIL MSG WITH DIRECT CONTACT INFORMATION AND REQUEST FOR A CALL BACK TO RE-SURE THAT PATIENT GET'S INFORMATION. MARTHA ALSO CALL PATIENT'S TOPHER NUNEZ AT TO INFORM HER AND PATIENT ABOUT HIS SCHEDULED APPOINTMENT DONE BY MARTHA REED WITH PCP WITHIN 7 DAYS OF HIS DISCHARGE FROM [facility]. MARTHA PROVIDED PATIENT'S WITH ALL INFORMATION TIME, AND DATE FOR THE FOLLOW UP APPOINTMENT. PATIENT'S AGREED TO PROVIDE AND INFORM PATIENT ABOUT HIS FOLLOW UP APPOINTMENT. PER SHE WILL MAKE SURE PATIENT ATTENDS HIS APPOINTMENT AND THANKED THESE BLASTING GANG MINER FOR THE INFORMATION. MARTHA ENDED THE CALL AND WILL FOLLOW UP NEEDED.
== END 2022-07-29 13:56 | disposition home or self-care (01) | DRG 241 ==
LOC: MED 16:12 → MTU 19:28
PROVIDERS: ADMIT Student in an Organized Health Care Education/Training Program; ATTEND Student in an Organized Health Care Education/Training Program
PROC: 0DB68ZX Excision of Stomach, Via Natural or Artificial Opening Endoscopic, Diagnostic (ICD-10-PCS; 2022-07-27)
PROC: 0DB58ZX Excision of Esophagus, Via Natural or Artificial Opening Endoscopic, Diagnostic (ICD-10-PCS; principal; 2022-07-27 09:20)
PROC: 0DJD8ZZ Inspection of Lower Intestinal Tract, Via Natural or Artificial Opening Endoscopic (ICD-10-PCS; 2022-07-29)
DX: K29.21 Alcoholic gastritis with bleeding (principal); K22.11 Ulcer of esophagus with bleeding; K83.1 Obstruction of bile duct; K74.60 Unspecified cirrhosis of liver; K57.31 Diverticulosis of large intestine without perforation or abscess with bleeding; E83.51 Hypocalcemia; D62 Acute posthemorrhagic anemia; K25.9 Gastric ulcer, unspecified as acute or chronic, without hemorrhage or perforation; K29.71 Gastritis, unspecified, with bleeding; F10.139 Alcohol abuse with withdrawal, unspecified; Y90.9 Presence of alcohol in blood, level not specified; Z20.822 Contact with and (suspected) exposure to COVID-19; K44.9 Diaphragmatic hernia without obstruction or gangrene; K64.4 Residual hemorrhoidal skin tags
CPT/HCPCS: 36415; 80053; 83735; 84100; 84484; 85025; 85610; 86677; 86886; 86900; 86901; 87081; 88305; 93005; 96374; 96375; 99291; 99292; C9113; G0482; J0696; J1170; J1200; J2250; J2270; J2354; J2405; J3010; J3475; J7030; J7060

== ENCOUNTER 2022-10-12 07:51 | Emergency (ER) | payer OTHER ==
[~2022-10-12] VITALS: Ht 182.9 cm; Wt 81.6 kg
[~2022-10-12 07:51] MED LIST changes: -LACT10SO11 PO; -ONDA-188 PO; +PANT40EC PO; -PRO40I PO
[2022-10-12 08:03] VITALS: BP 138/78
--- NOTE | 2022-10-12 08:10 | NUR ---
Patient ambulated to bed 05 with steady/even gait.
--- NOTE | 2022-10-12 08:20 | NUR ---
52 y/o M BIB self from home c/o insomnia, excessive sweating, decreased appetite, nausea, vomiting, mid abdominal pain x 3 days. Patient A&Ox4, ambulatory, states has only been drinking water for past 3 days and with nausea/vomiting "clear fluid." Last PO intake 3 days ago. Pt reports one episode of dizziness while getting up from bed yesterday. Pt states 2 days of mid abdominal pain; 5/10 cramping/intermittent, non-radiating. Mid abdominal tenderness noted. Denies dysuria, urinary symptoms, chest pain, SOB, cough, fever, chills. Denies OTC meds today. front desk monitor in place. HR 103. Bed locked in lowest position, side rails x 1. PMH/Sx/Meds: Denies NKDA
[2022-10-12] MEDS ORDERED: NACL 0.9% 1,000 ML IV ONE (08:55)
--- NOTE | 2022-10-12 08:58 | NUR ---
Lab at bedside
[2022-10-12 09:40] LABS: BASOPHILS % (AUTO) 0.1 % (0.0-2.0); HEMATOCRIT 40.3 % (36-52); HEMOGLOBIN 13.4 g/dL (12.0-18.0); LYMPHOCYTES # (AUTO) 0.7 K/uL (2.0-11.5); LYMPHOCYTES % (AUTO) 6.5 % (20.5-51.1); MEAN CORPUSCULAR HEMOGLOBIN 29 pg (27-31); MEAN CORPUSCULAR HGB CONC 33 g/dL (33-37); MEAN CORPUSCULAR VOLUME 85.7 fL (80-94); MONOCYTES # (AUTO) 0.7 K/uL (0.8-1.0); MONOCYTES % (AUTO) 6.8 % (1.7-9.3); NEUTROPHILS # (AUTO) 8.6 K/uL (1.8-7.7); NEUTROPHILS % (AUTO) 86.6 % (42.2-75.2); PLATELET COUNT (AUTO) 162 K/uL (140-450); RED CELL DISTRIBUTION WIDTH 16.7 % (11.6-13.7)
[2022-10-12 09:41] LABS: ALBUMIN 4.2 g/dL (3.4-5.0); ANION GAP 10.6 (8-16); ASPARTATE AMINOTRANSFERASE 43 U/L (15-37); CARBON DIOXIDE 35.8 mmol/L (21-32); CHLORIDE 95 mmol/L (98-107); CREATININE 1.1 mg/dL (0.6-1.3); GFR ARICAN-AMERICAN 90 mL/min (>90); GLUCOSE 101 mg/dL (74-106); POTASSIUM 3.4 mmol/L (3.5-5.1); SODIUM SERUM 138 mmol/L (136-145); TOTAL BILIRUBIN 0.7 mg/dL (0.0-1.0); UREA NITROGEN, BLOOD 18 mg/dL (7-18)
[2022-10-12 10:09] VITALS: BP 113/82
[2022-10-12] MEDS ORDERED: LIB25 PO (11:17)
--- NOTE | 2022-10-12 11:45 | NUR ---
Patient discharged with v/s stable. Written and verbal after care instructions given and explained for Alcohol Withdrawal Syndrome. Patient alert, oriented and verbalized understanding of instructions. Ambulatory with steady gait. All questions addressed prior to discharge. ID band removed. Patient advised to follow up with PMD. Rx of Librium given. Patient educated on indication of medication including possible reaction and side effects. Opportunity to ask questions provided and answered.
== END 2022-10-12 11:45 | disposition home or self-care (01) ==
LOC: MED 07:51
DX: F10.239 Alcohol dependence with withdrawal, unspecified (principal); Y90.9 Presence of alcohol in blood, level not specified
CPT/HCPCS: 36415; 80053; 85025; 96360; 99283; G0482

== ENCOUNTER 2023-10-14 22:54 | Emergency (ER) | payer OTHER ==
[~2023-10-14] VITALS: Ht 182.9 cm; Wt 99.8 kg
[~2023-10-14 22:54] MED LIST changes: +LIB25 PO
[2023-10-14 23:13] VITALS: BP 152/90; PULSE 90; RESP 20; TEMP 97.8; O2SAT 97
[2023-10-14] MEDS ORDERED: LIDOCAINE/EPI 2% 1:100000 20 ML VIAL INJ ONE (23:25)
[2023-10-15] MEDS ORDERED: BACITRACIN OINT 500 UNITS/GM PKT TP ONE (04:25)
[2023-10-15] MEDS ORDERED: BACI-418 TP (05:52)
[2023-10-15] MEDS ORDERED: NAPR-54 PO (05:52)
[2023-10-15] MEDS ORDERED: ACET-8905 PO (05:52)
[2023-10-15] MEDS ORDERED: ACETAMINOPHEN 325 MG TAB PO ONE (08:40)
[2023-10-15 08:54] VITALS: BP 113/78; PULSE 96; RESP 20; TEMP 100.6; O2SAT 98
[2023-10-15 11:02] LABS: FLU A ANTIGEN negative (NEGATIVE)
[2023-10-15 11:03] LABS: FLU B ANTIGEN POSITIVE (NEGATIVE)
[2023-10-15] MEDS ORDERED: TAM75 PO (11:06)
== END 2023-10-15 08:54 | disposition home or self-care (01) ==
LOC: MED 22:54
DX: S12.400A Unspecified displaced fracture of fifth cervical vertebra, initial encounter for closed fracture (principal); S12.500A Unspecified displaced fracture of sixth cervical vertebra, initial encounter for closed fracture; S12.300A Unspecified displaced fracture of fourth cervical vertebra, initial encounter for closed fracture; S01.81XA Laceration without foreign body of other part of head, initial encounter; S01.21XA Laceration without foreign body of nose, initial encounter; S01.511A Laceration without foreign body of lip, initial encounter; J11.1 Influenza due to unidentified influenza virus with other respiratory manifestations; Z20.822 Contact with and (suspected) exposure to COVID-19; Z98.890 Other specified postprocedural states; Z79.899 Other long term (current) drug therapy; Z79.1 Long term (current) use of non-steroidal anti-inflammatories (NSAID); Z79.2 Long term (current) use of antibiotics; V23.49XA Other motorcycle driver injured in collision with car, pick-up truck or van in traffic accident, initial encounter; Y93.89 Activity, other specified; Y92.410 Unspecified street and highway as the place of occurrence of the external cause; Y99.8 Other external cause status
CPT/HCPCS: 12015; 40650; 70450; 71045; 72125; 73080; 90471; 90715; 99285; J2001; Q0092